=== PATIENT | female | born 1985 | race Caucasian/White ===

== ENCOUNTER → 2017-10-08 | Outpatient (CLI) | payer BC ==
--- NOTE | 2017-10-08 16:24 | FL ---
EXAMINATION TYPE: FL hysterosalpingography DATE OF EXAM: 10/08/2017 COMPARISON: None HISTORY: Chronic infertility TECHNIQUE: The procedure was explained to the patient. All questions were answered. Written and verba l informed consent was obtained. Patient was placed on the fluoroscopy table. The cervix was localized by placement of the speculum. The vaginal vault was cleansed with Betadine. Catheter was placed into the cervical os. The balloon was inflated. Under fluoroscopic observation co ntrast was injected. 4 mL of contrast was utilized. The balloon was deflated and the catheter withdrawn. Delayed image was obtained overhead radiograph. Discharge instructions were discussed with the patient. Patient tolerated procedure very well. FINDINGS: Preliminary go go dancer images is noncontributory Uterus has a normal morphology. The fallopian tubes are thin and delicate. There is little resistance to contrast injection. Free spill is observed at the bilateral ovaries. There is free spill and empt yazmin of the uterus on delayed images. IMPRESSION: 1. Normal hysterosalpingogram with free spill through the bilateral fallopian tubes.
== END | disposition home or self-care (01) ==
LOC: RADFLMAIN 13:13
PROVIDERS: ATTEND Obstetrics & Gynecology Reproductive Endocrinology
DX: N70.11 Chronic salpingitis (principal)
CPT/HCPCS: 58340; 74740; Q9965

== ENCOUNTER 2018-01-14 14:14 | Emergency (ER) | payer BC ==
[2018-01-14] MEDS ORDERED: SODIUM CHLORIDE 0.9% 1,000 ML IV STA (15:06)
[2018-01-14 15:44] LABS: Basophils % (A) 0 %; Eosinophils # (A) 0.1 k/uL (0-0.7); Eosinophils % (A) 1 %; HCT 43.9 % (34.0-46.0); HGB 15.3 gm/dL (11.4-16.0); Lymphocytes # (A) 2.1 k/uL (1.0-4.8); Lymphocytes % (A) 18 %; MCH 31.5 pg (25.0-35.0); MCV 90.2 fL (80.0-100.0); Mean Platelet Volume 7.7; Monocytes # (A) 0.4 k/uL (0-1.0); Monocytes % (A) 3 %; Neutrophils # (A) 9.4 k/uL (1.3-7.7); Neutrophils % (A) 77 %; Platelet Count 211 k/uL (150-450); RBC 4.86 m/uL (3.80-5.40); RDW 12.7 % (11.5-15.5); WBC 12.1 k/uL (3.8-10.6)
[2018-01-14 15:50] LABS: Prothrombin Time 9.6 sec (9.0-12.0)
--- NOTE | 2018-01-14 15:52 | ED ---
Neuro HPI - General Source: patient, RN notes reviewed Mode of arrival: ambulatory Limitations: no limitations - History of Present Illness Is the patient presenting with stroke symptoms?: No <Lokesh Lewis - Last Filed: 01/14/18 19:22> <Zenon Segura - Last Filed: 01/14/18 21:21> - General Chief Complaint: Neuro Symptoms/Deficit Stated Complaint: headache & confusion/12 wks preg Time Seen by Provider: 01/14/18 14:48 - History of Present Illness Initial Comments: This a 32-year-old female presents emergency Department chief complaint of an episode of confusion, difficulty with thought process. 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 Patient states that she thought she just needs some rest that she has not felt well during her . She states she went to lunch attempted to rest and ate some food with no improvement her symptoms. Patient states she then developed a headache is concerned that she was not feeling well. Patient called PCP who told her to the emergency department. Patient has no focal weakness. She denies chest pain, shortness breath, vomiting. She does have ongoing nausea related to her . Patient has been referred to high-risk secondary to her history of preeclampsia. Patient is A0 approximately 12 weeks with no vaginal bleeding or vaginal discharge. She has no dysuria no hematuria. Patient states she's had no prior cardiac disease no prior seizure diagnosis, TIA, CVA. (Lokesh Lewis) - Related Data Home Medications: Home Medications Medication Instructions Recorded Confirmed 78/Iron/Folate 1/Dha 1 tab PO DAILY 11/29/14 01/14/18 [Prenate Dha Softgel] Montelukast [Singulair] 10 mg PO DAILY 01/14/18 01/14/18 Allergies/Adverse Reactions: Allergies Allergy/AdvReac Type Severity Reaction Status Date / Time amoxicillin Allergy Rash/Hives Verified 01/14/18 14:51 Sulfa (Sulfonamide Allergy Rash/Hives Verified 01/14/18 14:51 Antibiotics) Review of Systems ROS Other: All systems not noted in ROS Statement are negative. <Lokesh Lewis - Last Filed: 01/14/18 19:22> ROS Other: All systems not noted in ROS Statement are negative. <Zenon Segura B - Last Filed: 01/14/18 21:21> ROS Statement: Those systems with pertinent positive or pertinent negative responses have been documented in the HPI. General Exam Limitations: no limitations General appearance: alert, in no apparent distress Head exam: Present: atraumatic, normocephalic, normal inspection Eye exam: Present: normal appearance, PERRL, EOMI. Absent: scleral icterus, conjunctival injection, periorbital swelling ENT exam: Present: normal exam, normal oropharynx, mucous membranes moist Neck exam: Present: normal inspection, full ROM. Absent: tenderness, meningismus, lymphadenopathy Respiratory exam: Present: normal lung sounds bilaterally. Absent: respiratory distress, wheezes, rales, rhonchi, stridor Cardiovascular Exam: Present: regular rate, normal rhythm, normal heart sounds. Absent: systolic murmur, diastolic murmur, rubs, gallop, clicks GI/Abdominal exam: Present: soft, normal bowel sounds. Absent: distended, tenderness, guarding, rebound, rigid Neurological exam: Present: alert, oriented X3, CN II-XII intact, reflexes normal, other (Finger to nose intact bilaterally, GCS 15 and NIH scale 0 normal Romberg). Absent: motor sensory deficit Skin exam: Present: warm, dry, intact, normal color. Absent: rash <Lokesh Lewis M - Last Filed: 01/14/18 19:22> General appearance: alert, in no apparent distress Head exam: Present: atraumatic, normocephalic, normal inspection Eye exam: Present: normal appearance, PERRL, EOMI. Absent: scleral icterus, conjunctival injection, periorbital swelling ENT exam: Present: normal exam, mucous membranes moist Neck exam: Present: normal inspection. Absent: tenderness, meningismus, lymphadenopathy Respiratory exam: Present: normal lung sounds bilaterally. Absent: respiratory distress, wheezes, rales, rhonchi, stridor Cardiovascular Exam: Present: regular rate, normal rhythm, normal heart sounds. Absent: systolic murmur, diastolic murmur, rubs, gallop, clicks GI/Abdominal exam: Present: soft, normal bowel sounds. Absent: distended, tenderness, guarding, rebound, rigid Extremities exam: Present: normal inspection, full ROM, normal capillary refill. Absent: tenderness, pedal edema, joint swelling, calf tenderness Back exam: Present: normal inspection Neurological exam: Present: alert, oriented X3, CN II-XII intact Psychiatric exam: Present: normal affect, normal mood Skin exam: Present: warm, dry, intact, normal color. Absent: rash <Zenon Segura - Last Filed: 01/14/18 21:21> Stroke MDM - Lab Data Result diagrams: 01/14/18 15:15 01/14/18 15:15 <Lokesh Lewis - Last Filed: 01/14/18 19:22> - Lab Data Result diagrams: 01/14/18 15:15 01/14/18 15:15 <Zenon Segura - Last Filed: 01/14/18 21:21> - Lab Data Lab Results 01/14/18 01/14/18 01/14/18 Range/Units 15:15 15:15 15:15 WBC 12.1 H (3.8-10.6) k/uL RBC 4.86 (3.80-5.40) m/uL Hgb 15.3 (11.4-16.0) gm/dL Hct 43.9 (34.0-46.0) % MCV 90.2 (80.0-100.0) fL MCH 31.5 (25.0-35.0) pg MCHC 35.0 (31.0-37.0) g/dL RDW 12.7 (11.5-15.5) % Plt Count 211 (150-450) k/uL Neutrophils % 77 % Lymphocytes % 18 % Monocytes % 3 % Eosinophils % 1 % Basophils % 0 % Neutrophils # 9.4 H (1.3-7.7) k/uL Lymphocytes # 2.1 (1.0-4.8) k/uL Monocytes # 0.4 (0-1.0) k/uL Eosinophils # 0.1 (0-0.7) k/uL Basophils # 0.0 (0-0.2) k/uL PT (9.0-12.0) sec INR (<1.2) APTT (22.0-30.0) sec Sodium 137 (137-145) mmol/L Potassium 3.9 (3.5-5.1) mmol/L Chloride 105 (98-107) mmol/L Carbon Dioxide 23 (22-30) mmol/L Anion Gap 9 mmol/L BUN 12 (7-17) mg/dL Creatinine 0.61 (0.52-1.04) mg/dL Est GFR (CKD-EPI)AfAm >90 (>60 ml/min/1.73 sqM) Est GFR (CKD-EPI)NonAf >90 (>60 ml/min/1.73 sqM) Glucose 114 H (74-99) mg/dL Calcium 9.8 (8.4-10.2) mg/dL Total Bilirubin 0.3 (0.2-1.3) mg/dL AST 22 (14-36) U/L ALT 15 (9-52) U/L Alkaline Phosphatase 76 (38-126) U/L Total Creatine Kinase 38 (30-135) U/L CK-MB (CK-2) <0.2 (0.0-2.4) ng/mL CK-MB (CK-2) Rel Index Troponin I <0.012 (0.000-0.034) ng/mL Total Protein 7.9 (6.3-8.2) g/dL Albumin 4.3 (3.5-5.0) g/dL Urine Color Urine Appearance (Clear) Urine pH (5.0-8.0) Ur Specific [place] (1.001-1.035) Urine Protein (Negative) Urine Glucose (UA) (Negative) Urine Ketones (Negative) Urine Blood (Negative) Urine Nitrite (Negative) Urine Bilirubin (Negative) Urine Urobilinogen (<2.0) mg/dL Ur Leukocyte Esterase (Negative) Urine RBC (0-5) /hpf Ur Squamous Epith Cells (0-4) /hpf Urine Bacteria (None) /hpf Hyaline Casts (0-2) /lpf Urine Mucus (None) /hpf Urine Yeast (Budding) (None) /hpf 01/14/18 01/14/18 Range/Units 15:15 16:20 WBC (3.8-10.6) k/uL RBC (3.80-5.40) m/uL Hgb (11.4-16.0) gm/dL Hct (34.0-46.0) % MCV (80.0-100.0) fL MCH (25.0-35.0) pg MCHC (31.0-37.0) g/dL RDW (11.5-15.5) % Plt Count (150-450) k/uL Neutrophils % % Lymphocytes % % Monocytes % % Eosinophils % % Basophils % % Neutrophils # (1.3-7.7) k/uL Lymphocytes # (1.0-4.8) k/uL Monocytes # (0-1.0) k/uL Eosinophils # (0-0.7) k/uL Basophils # (0-0.2) k/uL PT 9.6 (9.0-12.0) sec INR 1.0 (<1.2) APTT 23.0 (22.0-30.0) sec Sodium (137-145) mmol/L Potassium (3.5-5.1) mmol/L Chloride (98-107) mmol/L Carbon Dioxide (22-30) mmol/L Anion Gap mmol/L BUN (7-17) mg/dL Creatinine (0.52-1.04) mg/dL Est GFR (CKD-EPI)AfAm (>60 ml/min/1.73 sqM) Est GFR (CKD-EPI)NonAf (>60 ml/min/1.73 sqM) Glucose (74-99) mg/dL Calcium (8.4-10.2) mg/dL Total Bilirubin (0.2-1.3) mg/dL AST (14-36) U/L ALT (9-52) U/L Alkaline Phosphatase (38-126) U/L Total Creatine Kinase (30-135) U/L CK-MB (CK-2) (0.0-2.4) ng/mL CK-MB (CK-2) Rel Index Troponin I (0.000-0.034) ng/mL Total Protein (6.3-8.2) g/dL Albumin (3.5-5.0) g/dL Urine Color Yellow Urine Appearance Turbid H (Clear) Urine pH 6.5 (5.0-8.0) Ur Specific [place] 1.016 (1.001-1.035) Urine Protein Negative (Negative) Urine Glucose (UA) Negative (Negative) Urine Ketones Negative (Negative) Urine Blood Negative (Negative) Urine Nitrite Negative (Negative) Urine Bilirubin Negative (Negative) Urine Urobilinogen <2.0 (<2.0) mg/dL Ur Leukocyte Esterase Small H (Negative) Urine RBC 4 (0-5) /hpf Ur Squamous Epith Cells 2 (0-4) /hpf Urine Bacteria Rare H (None) /hpf Hyaline Casts 14 H (0-2) /lpf Urine Mucus Rare H (None) /hpf Urine Yeast (Budding) Many H (None) /hpf - Medical Decision Making 30 female the ER for evasive headache positive headache. Patient is CT brain and MR brain which are negative here in the emergency room. Patient has no complaints of altered mental status and no neurological findings currently. Patient will be discharged home to follow-up with her OB (Zenon Segura) 01/14/18 19:23 EKG performed at 15:27 normal sinus rhythm with a rate of 98 LA 168 QRS 78 QT/ QTC 388/474 (Lokesh Lewis) Past Medical History Past Medical History: Asthma, Seizure Disorder Additional Past Medical History / Comment(s): seizures as a toddler, none since 18months of age History of Any Multi-Drug Resistant Organisms: None Reported Past Surgical History: Appendectomy, Section Past Anesthesia/Blood Transfusion Reactions: No Reported Reaction Past Psychological History: No Psychological Hx Reported Smoking Status: Never smoker Past Alcohol Use History: None Reported Past Drug Use History: None Reported - Past Family History Mother Family Medical History: Diabetes Mellitus, Hypertension <Lokesh Lewis - Last Filed: 01/14/18 19:22> Course <Lokesh Lewis - Last Filed: 01/14/18 19:22> <Zenon Segura - Last Filed: 01/14/18 21:21> Vital Signs 01/14/18 01/14/18 01/14/18 14:35 16:23 20:48 Temperature 98.1 F 98.3 F Pulse Rate 101 H 92 95 Respiratory 18 16 18 Rate Blood Pressure 150/88 115/82 120/83 O2 Sat by Pulse 97 96 100 Oximetry - Reevaluation(s) Reevaluation #1: 01/14/18 21:21 Medical record is reviewed No neurological focal findings found Patient can be discharged home (Zenon Segura) Disposition <Lokesh Lewis - Last Filed: 01/14/18 19:22> Is patient prescribed a controlled substance at d/c from ED?: No <Zenon Segura - Last Filed: 01/14/18 21:21> Clinical Impression: Headache Disposition: HOME SELF-CARE Condition: Good Instructions: Acute Headache (ED) Referrals: Umm Arguelles MD [Primary Care Provider] - 1-2 days
[2018-01-14 15:56] LABS: ALT 15 U/L (9-52); AST 22 U/L (14-36); Albumin 4.3 g/dL (3.5-5.0); Alkaline Phosphatase 76 U/L (38-126); Anion Gap 9 mmol/L; Blood Urea Nitrogen 12 mg/dL (7-17); Calcium 9.8 mg/dL (8.4-10.2); Carbon Dioxide 23 mmol/L (22-30); Chloride 105 mmol/L (98-107); Creatine Kinase 38 U/L (30-135); Glucose 114 mg/dL (74-99); Potassium 3.9 mmol/L (3.5-5.1); Sodium 137 mmol/L (137-145); Total Bilirubin 0.3 mg/dL (0.2-1.3); Total Protein 7.9 g/dL (6.3-8.2)
[2018-01-14 16:08] LABS: Troponin I <0.012 ng/mL (0.000-0.034)
[2018-01-14 16:16] LABS: Creatine Kinase MB <0.2 ng/mL (0.0-2.4)
[2018-01-14 16:34] LABS: Appearance,Urine Turbid (Clear); Bacteria,Urine Rare /hpf; Bilirubin,Urine Negative (Negative); Blood,Urine Negative (Negative); Budding Yeast,Urine Many /hpf; Color,Urine Yellow; Glucose,Urine (UA) Negative (Negative); Hyaline Casts,Urine 14 /lpf (0-2); Ketones,Urine Negative (Negative); Leukocyte Esterase,Urine Small (Negative); Mucus,Urine Rare /hpf; Nitrite,Urine Negative (Negative); PH, Urine 6.5 (5.0-8.0); Protein,Urine Negative (Negative); RBC,Urine 4 /hpf (0-5); Specific Gravity,Urine 1.016 (1.001-1.035); Squamous Epithelial Cell,Urine 2 /hpf (0-4); Urobilinogen,Urine <2.0 mg/dL (<2.0)
--- NOTE | 2018-01-14 16:58 | CT ---
EXAMINATION TYPE: CT brain wo con DATE OF EXAM: 01/14/2018 COMPARISON: None HISTORY: Headache and confusion. CT DLP: 1012.4 mGycm. Automated Exposure Control for Dose Reduction was Utilized. TECHNIQUE: CT scan of the head is performed without contrast. FINDINGS: Ventricles and sulci appear normal. There is no mass effect nor midline shift. There is no sign of intracranial hemorrhage. The calvarium is intact. IMPRESSION: Negative CT scan of the brain.
[2018-01-14 20:50] VITALS: BP 120/83; PULSE 95; RESP 18; TEMP 98.3
--- NOTE | 2018-01-14 21:04 | MR ---
EXAMINATION TYPE: MR brain wo con DATE OF EXAM: 01/14/2018 COMPARISON: None HISTORY: Headache, memory issues, confusion, 15 wks . Standard multiplanar, multisequence MRI departmental protocol Multiplanar, multisequence images of the brain were acquired. Diffusion weighted imaging was performe d. FINDINGS: Ventricles of normal size. There is no mass effect nor midline shift. There is no sign of i ntracranial hemorrhage. Corpus callosum appears normal. Sella turcica appears normal. Brainstem is in tact. There is no evidence of cortical infarct. IMPRESSION: Negative MR scan of the brain.
== END 2018-01-14 21:58 | disposition home or self-care (01) ==
LOC: EC 14:14
DX: O99.89 Other specified diseases and conditions complicating pregnancy, childbirth and the puerperium (principal); R51 Headache; R41.0 Disorientation, unspecified; R11.0 Nausea; O99.511 Diseases of the respiratory system complicating pregnancy, first trimester; J45.909 Unspecified asthma, uncomplicated; Z3A.12 12 weeks gestation of pregnancy; Z90.49 Acquired absence of other specified parts of digestive tract; Z79.899 Other long term (current) drug therapy; Z88.0 Allergy status to penicillin; Z88.2 Allergy status to sulfonamides
CPT/HCPCS: 36415; 70450; 70551; 80053; 81001; 82550; 82553; 84484; 85025; 85610; 85730; 93005; 96360; 96361; 99285

== ENCOUNTER → 2018-05-01 | Outpatient (CLI) | payer BC ==
[2018-05-01 11:03] LABS: HCT 39.9 % (34.0-46.0); HGB 13.7 gm/dL (11.4-16.0); MCHC 34.3 g/dL (31.0-37.0); MCV 93.3 fL (80.0-100.0); Mean Platelet Volume 7.9; Platelet Count 173 k/uL (150-450); RBC 4.27 m/uL (3.80-5.40); RDW 13.7 % (11.5-15.5); WBC 12.8 k/uL (3.8-10.6)
== END | disposition home or self-care (01) ==
LOC: LABWHC1 09:44
PROVIDERS: ATTEND Obstetrics & Gynecology
DX: Z34.82 Encounter for supervision of other normal pregnancy, second trimester (principal)
CPT/HCPCS: 36415; 82950; 85027

== ENCOUNTER → 2018-06-28 | Outpatient (CLI) | payer BC | END | disposition home or self-care (01) | LOC: LABWHC1 15:36 | PROVIDERS: ATTEND Otolaryngology | DX: J30.89 Other allergic rhinitis (principal) | CPT/HCPCS: 36415 ==

== ENCOUNTER 2018-07-18 13:48 | Outpatient (CLI) | payer BC ==
[2018-07-18 14:22] VITALS: BP 126/78; PULSE 99; RESP 16; TEMP 97.7
[2018-07-18 14:35] LABS: Appearance,Urine Clear (Clear); Bilirubin,Urine Negative (Negative); Blood,Urine Negative (Negative); Color,Urine Yellow; Glucose,Urine (UA) Negative (Negative); Ketones,Urine Negative (Negative); Leukocyte Esterase,Urine Negative (Negative); Nitrite,Urine Negative (Negative); Protein,Urine Negative (Negative); Specific Gravity,Urine 1.022 (1.001-1.035); Urobilinogen,Urine <2.0 mg/dL (<2.0)
[2018-07-18 14:54] LABS: ALT 28 U/L (9-52); AST 29 U/L (14-36); Basophils % (A) 0 %; Blood Urea Nitrogen 13 mg/dL (7-17); Eosinophils # (A) 0.1 k/uL (0-0.7); Eosinophils % (A) 1 %; HCT 43.3 % (34.0-46.0); HGB 15.1 gm/dL (11.4-16.0); LDH 404 U/L (313-618); Lymphocytes # (A) 2.2 k/uL (1.0-4.8); Lymphocytes % (A) 22 %; MCH 32.3 pg (25.0-35.0); MCHC 34.8 g/dL (31.0-37.0); MCV 92.6 fL (80.0-100.0); Mean Platelet Volume 10.6; Monocytes # (A) 0.4 k/uL (0-1.0); Monocytes % (A) 4 %; Neutrophils # (A) 6.9 k/uL (1.3-7.7); Neutrophils % (A) 72 %; Platelet Count 137 k/uL (150-450); RBC 4.67 m/uL (3.80-5.40); RDW 14.9 % (11.5-15.5); Uric Acid 6.7 mg/dL (3.7-7.4); WBC 9.7 k/uL (3.8-10.6)
[2018-07-18 15:14] LABS: Anisocytosis (M) Present; Polychromasia Present
--- NOTE | 2018-08-04 08:36 | P.MSEPDOC ---
Presenting Problems - Arrival Data Date of Arrival on Unit: 07/18/18 Time of Arrival on Unit: 13:48 Mode of Transport: Ambulatory - Complaint OB-Reason for Admission/Chief Complaint: PIH Comment: pt states history of PIH with first has some high pressures taken at home. Medical History - Information : 2 Para: 1 Term: 0 : 0 Abortions: Spontaneous or Elective: 0 Number of Living Children: 1 - Gestational Age Gestational Age by RJ (wks/days): 38 Weeks and 0 Days - History Complications: Preeclampsia, GDM, Prior Review of Systems - Review of Systems Constitutional: No problems Breast: No problems ENT: No problems Cardiovascular: No problems Respiratory: No problems Gastrointestinal: No problems Genitourinary: No problems Musculoskeletal: No problems Neurological: No problems Skin: No problems Vital Signs - Temperature Temperature: 97.7 F Temperature Source: Oral - Pulse Right Brachial Pulse Rate: 99 Pulse Assessment Method: Automatic Cuff - Respirations Respiratory Rate: 16 Oxygen Delivery Method: Room Air O2 Sat by Pulse Oximetry: 96 - Blood Pressure Right Arm Blood Pressure: 126/78 Blood Pressure Mean: 94 Blood Pressure Source: Automatic Cuff Medical Screen Scoring (Pre) - Uterine Contractions Frequency: N/A Duration: N/A Intensity: N/A - Maternal Vital Signs Maternal Temperature: N/A Signs of Preeclampsia: Headache = 1 Maternal Respirations: N/A - Pain Assessment Pain Scale Used: Numeric (1 - 10) Pain Intensity: 0 Pain Management Goal: 0 Pain Behavior: None Exhibited - Assessment Baseline FHR: 140 Heart Rate - NICHD Category: Category I (Normal) = 0 NST: Reactive Position: N/A - Total Score Total Score (Pre): 1 - Level of Risk Level of Risk: Low (0-5) Physician Notification (Pre) - Physician Notified Physician Notified Date: 07/18/18 Physician Notified Time: 14:04 Physician/Practitioner Notifed:: Reji Spoke With: Reji New Order Received: Yes - Notification Comment Comment: Quentin Perez RN obtained orders by phone for PIH workup Medical Screen Scoring (Post) - Uterine Contractions Frequency: N/A Duration: N/A Intensity: N/A - Maternal Vital Signs Maternal Temperature: N/A Maternal Blood Pressure: N/A Signs of Preeclampsia: Headache = 1 Maternal Respirations: N/A - Pain Assessment Pain Scale Used: Numeric (1 - 10) Pain Intensity: 0 Pain Management Goal: 0 Pain Behavior: None Exhibited - Maternal Trauma Maternal Trauma: N/A - Assessment Heart Rate: 140 Heart Rate - NICHD Category: Category I (Normal) = 0 Position: N/A Station: N/A - Total Score Total Score (Post): 1 - Post Treatment Level of Risk Post Treatment Level of Risk: Low (0-5) Physician Notification (Post) - Physician Notified Physician Notified Date: 07/18/18 Physician Notified Time: 15:30 Physician/Practitioner Notified:: Reji Spoke With: Reji New Order Received: No - Notification Comment Comment: Dr Mendoza informed of lab results and serial blood pressures reactive NST no contractions no PIH symptoms Disposition - Disposition OB Disposition: Discharge to home Discharge Date: 07/18/18 Discharge Time: 15:40 I agree with the RN Medical Screening Exam: Yes Risk & Benefit of care provided described in d/c instruction: Yes Diagnosis: GESTATIONAL HTN W/O SIGNIFICANT PROTEINURIA, THIRD TRIMESTER
== END 2018-07-18 15:40 | disposition home or self-care (01) ==
LOC: FBPOP 13:48
PROVIDERS: ATTEND Obstetrics & Gynecology
DX: O13.3 Gestational [pregnancy-induced] hypertension without significant proteinuria, third trimester (principal); Z68.38 Body mass index [BMI] 38.0-38.9, adult
CPT/HCPCS: 59025; 81003; 82565; 82570; 83615; 84156; 84450; 84460; 84520; 84550; 85025; 99215

== ENCOUNTER 2018-07-27 09:56 | Inpatient (IN) | payer BC ==
--- NOTE | 2018-07-26 20:10 | P.HPOB ---
History of Present Illness H&P Date: 07/26/18 Chief Complaint: Repeat section This is a 32-year-old female 2 para 1 with an estimated date of confinement of 08/01/2018, estimated gestational age of 39-2/7 weeks, who presents to labor and delivery for scheduled repeat section secondary to gestational diabetes and history of previous section. She does have a history of preeclampsia but her labs have been within normal limits during this . Her sugars have been controlled on metformin and diet control. labs: GC/chlamydia/Trichomonas-negative Hemoglobin-14.2 Blood type-O+ Antibody screen-negative Rubella-immune HIV-nonreactive Random glucose-68 RPR-nonreactive Hepatitis B surface antigen-negative One hour [id number], 24 weeks'-173 Three-hour Glucola-within normal limits Group B streptococcus-negative Obstetrical history: . History of 1 section at 36-1/2 weeks due to failed induction of labor for preeclampsia-severe. She also had gestational diabetes during this . Gynecologic history: No history of sexual transmitted diseases. Social history: She is . 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 Review of Systems Constitutional: Denies chills, Denies fever Eyes: denies blurred vision, denies pain Ears, nose, mouth and throat: Denies headache, Denies sore throat Cardiovascular: Denies chest pain, Denies shortness of breath Respiratory: Denies cough Gastrointestinal: Reports abdominal pain (Irregular contractions) Genitourinary: Reports Musculoskeletal: Reports low back pain Integumentary: Denies pruritus, Denies rash Neurological: Denies numbness, Denies weakness Past Medical History Past Medical History: Asthma, Seizure Disorder Additional Past Medical History / Comment(s): seizures as a toddler, none since 18 months of age, gestational diabetes, benign PVC's, allergy induced asthma, History of Any Multi-Drug Resistant Organisms: None Reported Past Surgical History: Appendectomy, Section Additional Past Surgical History / Comment(s): oral surgery Past Anesthesia/Blood Transfusion Reactions: Previous Problems w/ Anesthesia, Motion Sickness Additional Past Anesthesia/Blood Transfusion Reaction / Comment(s): "could not move arms after last C/S"- (had epidural then spinal) - wore off when numbing wore off Past Psychological History: No Psychological Hx Reported Smoking Status: Never smoker Past Alcohol Use History: None Reported Past Drug Use History: None Reported - Past Family History Mother Family Medical History: Deep Vein Thrombosis (DVT) Medications and Allergies Home Medications Medication Instructions Recorded Confirmed Type 78/Iron/Folate 1/Dha 1 tab PO DAILY 11/29/14 07/23/18 History [Prenate Dha Softgel] Aspirin [Adult Low Dose Aspirin EC] 81 mg PO DAILY 07/18/18 07/23/18 History Loratadine [Claritin] 10 mg PO DAILY 07/18/18 07/23/18 History metFORMIN HCL 1,000 mg PO DAILY 07/18/18 07/23/18 History Allergies Allergy/AdvReac Type Severity Reaction Status Date / Time amoxicillin Allergy Rash/Hives Verified 07/23/18 14:42 Sulfa (Sulfonamide Allergy Rash/Hives Verified 07/23/18 14:42 Antibiotics) Exam Osteopathic Statement: *. No significant issues noted on an osteopathic structural exam other than those noted in the History and Physical/Consult. HEENT: Within normal limits Heart: Regular rate and rhythm Lungs: Clear to auscultation bilaterally Abdomen: Cervix: 1 cm/50%/-3 station heart tones: 140s by Doppler Extremities: Negative Homans Assessment and Plan (1) 39 weeks gestation of Status: Acute Code(s): Z3A.39 - 39 WEEKS GESTATION OF SNOMED Code(s): 75710137 (2) Gestational diabetes mellitus (GDM) Status: Acute Code(s): O24.419 - GESTATIONAL DIABETES MELLITUS IN , UNSP CONTROL SNOMED Code(s): 93794605 (3) Previous delivery affecting Status: Acute Code(s): O34.219 - MATERNAL CARE FOR UNSP TYPE SCAR FROM PREVIOUS DEL SNOMED Code(s): 624649042 Plan: Proceed with repeat low transverse section. I have discussed the risks, benefits, and alternative therapies for the above- mentioned procedure and for both sedation/anesthesia as well as necessary blood products administration, if indicated, as they pertain to this patient. The patient has indicated her understanding and acceptance of the risks and procedures discussed.
[2018-07-27] MEDS ORDERED: CITRIC ACID-SODIUM CITRATE 15 ML CUP PO ONE (10:21)
[2018-07-27] MEDS ORDERED: CLINDAMYCIN 900 MG in DEXTROSE 5% IN WATER 50 ML IVPB STA ×2 (10:21)
[2018-07-27] MEDS ORDERED: LACTATED RINGERS 1,000 ML IV ONE (10:21)
[2018-07-27] MEDS ORDERED: LIDOCAINE 1% 20 ML VIAL (10MG/ML) FOR IV START INTRADERMA PRN (10:21)
[2018-07-27 10:32] VITALS: BMI 35.1
[2018-07-27 10:40] LABS: Basophils % (A) 0 %; Eosinophils # (A) 0.1 k/uL (0-0.7); Eosinophils % (A) 1 %; HCT 46.1 % (34.0-46.0); HGB 15.3 gm/dL (11.4-16.0); Lymphocytes # (A) 2.1 k/uL (1.0-4.8); Lymphocytes % (A) 28 %; MCH 30.7 pg (25.0-35.0); MCHC 33.1 g/dL (31.0-37.0); MCV 92.9 fL (80.0-100.0); Mean Platelet Volume 10.7; Monocytes # (A) 0.3 k/uL (0-1.0); Monocytes % (A) 4 %; Neutrophils # (A) 4.9 k/uL (1.3-7.7); Neutrophils % (A) 65 %; Platelet Count 130 k/uL (150-450); RBC 4.96 m/uL (3.80-5.40); WBC 7.5 k/uL (3.8-10.6)
[2018-07-27 10:42] LABS: Glucose,Whole Blood 77 mg/dL (75-99)
[2018-07-27] MEDS ORDERED: MORPHINE SULFATE (PF) 0.3 MG/0.3 ML SYR ONE (11:57)
[2018-07-27] MEDS ORDERED: ONDANSETRON 4 MG/2 ML VIAL ONE (11:57)
[2018-07-27] MEDS ORDERED: OXYTOCIN 10 UNIT/ML 1 ML VIAL ONE (11:57)
[2018-07-27] MEDS ORDERED: LACTATED RINGERS 1,000 ML BAG IV ONE (11:57)
[2018-07-27] MEDS ORDERED: PHENYLEPHRINE-0.9% NACL SYG 1 MG/10 ML SYRINGE ONE (11:57)
[2018-07-27] MEDS ORDERED: KETOROLAC 30 MG/ML 1 ML VIAL ONE (11:57)
[2018-07-27] MEDS ORDERED: NALBUPHINE 10 MG/ML (1 ML AMP) ONE (11:57)
--- NOTE | 2018-07-27 12:44 | P.OP ---
Date of Procedure: 07/27/18 Preoperative Diagnosis: 1. Intrauterine at 39-2/7 weeks. 2. Gestational diabetes. 3. History of previous section. Postoperative Diagnosis: Same plus lower abdominal nevus Procedure(s) Performed: Repeat low transverse section Excision of left lower abdominal wall nevus Anesthesia: spinal (Duramorph) Surgeon: Jessica Mendoza Commercial Real Estate Appraiser #1: Patricia Hanson Estimated Blood Loss (ml): 800 Pathology: other (Placenta, left lower abdominal wall nevus) Condition: stable Disposition: floor Indications for Procedure: This is a 32-year-old female 2 para 1 at 39-2/7 weeks, who presents for scheduled repeat section secondary to gestational diabetes and history of previous section. Her diabetes has been controlled with metformin and diet. She is also been followed by maternal medicine during this . Operative Findings: A viable female is noted in the vertex presentation with scores of 9 at 1 minute and 9 at 5 minutes and weight of 7 lbs. 1 oz. Normal uterus tubes and ovaries are noted. There is also noted to be a dark nevus on the left lower abdomen approximately 1 cm in diameter. The patient does consent to removal during surgery. Description of Procedure: The patient is taken to the operating room where she is placed in the dorsal supine position with leftward tilt after spinal Duramorph anesthesia is given. She is prepped and draped in the normal sterile fashion. Skin was tested and found to be adequately anesthetized. A Pfannenstiel skin incision was made with a scalpel through the previous laparotomy scar. A second knife was used to carry the incision down to the underlying layer of fascia. The fascia was nicked in the midline with a scalpel and then extended laterally bilaterally with Velazquez scissors. The anterior lip of the fascia was grasped with 2 Juan clamps and then dissected off the underlying rectus muscle in the midline with Velazquez scissors. The inferior aspect of the fascial incision was grasped with 2 Juan clamps and dissected off the underlying rectus muscle and the midline with Velazquez scissors. Next the peritoneum layer was tented up with 2 hemostats and then entered sharply with the scalpel. The incision is extended superiorly and inferiorly with Metzenbaum scissors. Next a DeLee retractor is placed. The vesicouterine peritoneum is entered sharply with Metzenbaum scissors and extended laterally bilaterally with Metzenbaum scissors and then the bladder flap is pushed inferiorly. The lower uterine segment is incised in transverse fashion with the scalpel and then bluntly entered with a hemostat. Clear fluid is noted. The incision was then extended laterally bilaterally with 2 fingers. Next the infant's head is delivered through the incision. Nose and mouth are bulb suctioned. The remainder of the infant is easily delivered and placed on mother's abdomen. Cord is clamped and cut. Infant is taken to warmer by nursing staff. Uterine fundus is gently massaged and placenta is delivered manually. Uterus is exteriorized and cleared of all clots and debris. Uterine incision is closed with 0 Vicryl suture in a running locked fashion. A second layer of 0 Vicryl suture is used in a running fashion for hemostasis. Once adequate hemostasis as assured, the vesicouterine peritoneum is reapproximated with 2-0 Vicryl suture in a running fashion. Posterior cul-de-sac is suctioned of all clots and debris. Uterus is returned to the abdomen. Incision is noted to be hemostatic. Peritoneal layer is closed with 0 Vicryl suture in a running fashion. Muscle layer is reapproximated with 0 Vicryl suture in interrupted fashion. Fascia layer is then closed with 0 PDS suture with 2 sutures meeting in the midline and the knots buried in either side and in the midline. The subcutaneous tissue was then closed with 2-0 Vicryl suture. Skin layer was then closed with hasmukh. Attention is then turned to the lower abdominal nevus on the left side. An elliptical incision is made with the scalpel removing the nevus entirely. The skin incision is then sutured with 4-0 Vicryl undyed suture in a subcuticular fashion. A Steri-Strip is placed over this incision. All sponge and needle counts are correct. The patient is taken to recovery room in stable condition.
[2018-07-27] MEDS ORDERED: ZOLPIDEM 5 MG TAB PO PRN (12:53)
[2018-07-27] MEDS ORDERED: diphenhydrAMINE 25 MG CAP PO PRN (12:53)
[2018-07-27] MEDS ORDERED: HYDROcodone/APAP 7.5-325MG 1 EACH TAB PO PRN (12:53)
[2018-07-27] MEDS ORDERED: SIMETHICONE 80 MG CHEWABLE PO PRN (12:53)
[2018-07-27] MEDS ORDERED: METOCLOPRAMIDE 5 MG/ML 2 ML VIAL IVP PRN (12:53)
[2018-07-27] MEDS ORDERED: diphenhydrAMINE 50 MG/ML 1 ML VIAL IVP PRN ×2 (12:53)
[2018-07-27] MEDS ORDERED: KETOROLAC 30 MG/ML 1 ML VIAL IVP PRN (12:53)
[2018-07-27] MEDS ORDERED: HYDROcodone/APAP 5-325MG 1 EACH TAB PO PRN (12:53)
[2018-07-27] MEDS ORDERED: NALOXONE 0.4 MG/ML 1 ML VIAL IV PRN (12:53)
[2018-07-27] MEDS ORDERED: diphenhydrAMINE 50 MG CAP PO PRN (12:53)
[2018-07-27] MEDS ORDERED: ONDANSETRON 4 MG/2 ML VIAL IVP PRN (12:53)
[2018-07-27] MEDS ORDERED: OXYTOCIN 20 UNITS/1000 ML NS 1,000 ML IV SCH (12:53)
[2018-07-27] MEDS: LACTATED RINGERS 1,000 ML IV SCH (14:35)
[2018-07-27 17:38] LABS: Hemoglobin A1C 5.1 % (4.0-6.0)
[2018-07-27] MEDS: SENNOSIDES-DOCUSATE SODIUM 1 EACH TAB PO SCH (21:15)
[2018-07-27] MEDS: LORATADINE 10 MG TAB PO SCH (23:12)
[2018-07-28 05:46] LABS: Basophils % (A) 0 %; Eosinophils # (A) 0.1 k/uL (0-0.7); Eosinophils % (A) 1 %; HCT 41.1 % (34.0-46.0); Lymphocytes # (A) 1.7 k/uL (1.0-4.8); Lymphocytes % (A) 17 %; MCH 31.6 pg (25.0-35.0); MCV 93.2 fL (80.0-100.0); Mean Platelet Volume 10.5; Monocytes # (A) 0.4 k/uL (0-1.0); Monocytes % (A) 4 %; Neutrophils # (A) 7.4 k/uL (1.3-7.7); Neutrophils % (A) 77 %; Platelet Count 100 k/uL (150-450); RBC 4.41 m/uL (3.80-5.40); RDW 14.9 % (11.5-15.5); WBC 9.6 k/uL (3.8-10.6)
--- NOTE | 2018-07-28 05:50 | P.PN ---
Progress Note - Text Progress Note Date: 07/28/18 POD 1 from . Had a spinal with Duramorph. Doing well this morning, able to ambulate and urinate on her own. No lower ext weakness. No parasthesia. No pruritis. Pain under control. No mental status changes.
[2018-07-28] MEDS: SENNOSIDES-DOCUSATE SODIUM 1 EACH TAB PO SCH ×2 (08:02→21:26)
--- NOTE | 2018-07-28 08:53 | P.PNOBGPC ---
Subjective - Subjective Principal diagnosis: Status post repeat section postoperative day #1 Interval history: Patient is doing well. She is ambulating. She is passing some flatus but no bowel movement yet. She is urinating without difficulty. Baby is breast- feeding well. Lochia is decreasing. Patient reports: Reports appetite normal, Reports voiding normally, Reports pain well controlled, Reports ambulating normally : doing well, nursing well Objective - Vital Signs Latest vital signs: Vital Signs Temp Pulse Resp BP Pulse Ox 07/28/18 04:00 97.8 F 77 16 119/70 07/28/18 00:00 97.7 F 84 16 117/77 96 07/27/18 16:00 97.6 F 85 16 139/78 98 07/27/18 14:59 96.7 F L 69 16 123/74 97 07/27/18 14:29 78 16 120/72 96 07/27/18 13:59 86 16 127/60 96 07/27/18 13:44 91 18 115/79 97 07/27/18 13:29 98 16 119/74 95 07/27/18 13:14 85 16 109/65 95 07/27/18 12:53 96.3 F L 93 16 106/62 95 07/27/18 10:23 97.4 F L 79 16 118/89 Intake and Output 07/27/18 07/28/18 07/28/18 22:59 06:59 14:59 Output Total 1100 800 Balance -1100 -800 Output: Urine 700 800 Uretheral (Adams) 700 Emesis 400 Other: # Voids 0 - Exam Extremities: Present: normal. Absent: tenderness, edema Abdomen: Present: normal appearance, soft (Positive bowel sounds 4). Absent: distention, tenderness Incision: Present: normal, dry, intact. Absent: erythematous Uterus: Present: normal, firm. Absent: tenderness - Labs Labs: Abnormal Lab Results - Last 24 Hours (Table) 07/27/18 07/28/18 Range/Units 10:20 05:31 Hct 46.1 H (34.0-46.0) % Plt Count 130 L 100 L (150-450) k/uL Assessment and Plan Assessment: Impression is status post repeat section postoperative day #1 (1) 39 weeks gestation of Current Visit: No Status: Acute Code(s): Z3A.39 - 39 WEEKS GESTATION OF SNOMED Code(s): 95941760 (2) Gestational diabetes mellitus (GDM) Current Visit: No Status: Acute Code(s): O24.419 - GESTATIONAL DIABETES MELLITUS IN , UNSP CONTROL SNOMED Code(s): 61634023 (3) Previous delivery affecting Current Visit: No Status: Acute Code(s): O34.219 - MATERNAL CARE FOR UNSP TYPE SCAR FROM PREVIOUS DEL SNOMED Code(s): 375563507 Plan: Continue with postoperative care. Advance diet as tolerated. Encouraged ambulation.
[2018-07-28] MEDS: LORATADINE 10 MG TAB PO SCH (10:57)
[2018-07-28] MEDS: IBUPROFEN 600 MG TAB PO PRN (16:24)
[2018-07-28] MEDS: LACTATED RINGERS 1,000 ML IV SCH (18:28)
[2018-07-28] MEDS: ACETAMINOPHEN TAB 325 MG TAB PO PRN (21:23)
[2018-07-29] MEDS: IBUPROFEN 600 MG TAB PO PRN (05:58)
--- NOTE | 2018-07-29 08:02 | P.DS ---
Providers Date of admission: 07/27/18 09:56 Expected date of discharge: 07/29/18 Attending physician: Jessica Mendoza Primary care physician: Stated None - Discharge Diagnosis(es) (1) 39 weeks gestation of Current Visit: No Status: Acute (2) Gestational diabetes mellitus (GDM) Current Visit: No Status: Acute (3) Previous delivery affecting Current Visit: No Status: Acute Hospital Course: This is a 32-year-old female 2 para 1 at 39-2/7 weeks who presents to labor and delivery for repeat section and a history of gestational diabetes controlled on metformin. She underwent a repeat low transverse section on 07/27/2018 and delivered a viable female with scores of 9 at 1 minute and 9 at 5 minutes and infant weight of 7 lbs. 1 oz. Her postoperative course and course has been essentially uncomplicated. She is breast-feeding. Lochia is decreasing. Pain is fairly well controlled with ibuprofen and regular Tylenol. She has been passing flatus but no bowel movement yet. She would like to go home today. Vital signs are stable. Abdomen is soft with positive bowel sounds 4. Incision is clean dry and intact. Extremities show negative Homans. Impression is status post repeat section postoperative day #2. Plan is to discharge home today. Routine postoperative and instructions are given. She will be given a prescription for ibuprofen. She has also requested a abdominal binder. She is advised to follow up in the office in 1 week for a postoperative check and in 6 weeks for check. She is advised to call the office if she has any further questions or concerns prior to her appointment time. Price will be removed and Steri-Strips placed prior to discharge. Procedures: Repeat low transverse section with delivery of a viable female on 07/27/2018 Patient Condition at Discharge: Stable Plan - Discharge Summary Discharge Rx Participant: Yes New Discharge Prescriptions: New Ibuprofen [Motrin] 600 mg PO Q6HR PRN #60 tab PRN Reason: Mild Pain Or Fever >= 100.5 Continue 78/Iron/Folate 1/Dha [Prenate Dha Softgel] 1 tab PO DAILY Loratadine [Claritin] 10 mg PO DAILY Discontinued metFORMIN HCL 1,000 mg PO DAILY Aspirin [Adult Low Dose Aspirin EC] 81 mg PO DAILY Discharge Medication List 78/Iron/Folate 1/Dha [Prenate Dha Softgel] 1 tab PO DAILY 09/23/15 [History] Loratadine [Claritin] 10 mg PO DAILY 07/18/18 [History] Ibuprofen [Motrin] 600 mg PO Q6HR PRN #60 tab 07/29/18 [Rx] Follow up Appointment(s)/Referral(s): Jessica Mendoza DO [Doctor of Osteopathic Medicine] - 1 Week Activity/Diet/Wound Care/Special Instructions: Instructions 1. Do not begin any exercise program for 3 weeks. 2. Do not resume sexual relations for 3 weeks or longer if uncomfortable. 3. You may take tub baths or showers at any time. 4. You may use tampons if desired after 3 weeks. 5. Keep the area of episiotomy (stitches) clean and dry. 6. If you are not nursing, wear a good fitting, supportive bra during the day and limit fluid intake for at least 1 week to prevent breast engorgement. 7. Call the office, [phone], within the next week to make appointment for your 6 week checkup if it has not already been made. 8. Report any of the following occurrences to the doctor promptly: a. Heavy, excessive bleeding b. Chills, fever c. Burning or frequency of urination d. Pain or redness and breasts if nursing e. Increasing pain or swelling in episiotomy (stitches). In addition to the above instructions, the following additional should be followed: 1. No heavy lifting or straining (exercising) until after 6 week checkup. 2. Keep abdominal incision clean and dry: You may wear a dressing if more comfortable. 3. Make office appointment for 10 days after going home or as instructed by her doctor. Discharge Disposition: HOME SELF-CARE
[2018-07-29] MEDS: SENNOSIDES-DOCUSATE SODIUM 1 EACH TAB PO SCH (08:18)
[2018-07-29 08:20] VITALS: BP 120/82; PULSE 93; RESP 20; TEMP 98
[2018-07-29] MEDS: ACETAMINOPHEN TAB 325 MG TAB PO PRN (10:23)
[2018-07-29 12:11] LABS: Basophils % (A) 0 %; Eosinophils # (A) 0.1 k/uL (0-0.7); Eosinophils % (A) 1 %; HCT 46.3 % (34.0-46.0); HGB 15.2 gm/dL (11.4-16.0); Lymphocytes # (A) 1.5 k/uL (1.0-4.8); Lymphocytes % (A) 18 %; MCH 31.5 pg (25.0-35.0); MCHC 32.8 g/dL (31.0-37.0); MCV 95.9 fL (80.0-100.0); Mean Platelet Volume 11.7; Monocytes # (A) 0.4 k/uL (0-1.0); Monocytes % (A) 5 %; Neutrophils # (A) 6.4 k/uL (1.3-7.7); Neutrophils % (A) 75 %; Platelet Count 118 k/uL (150-450); RBC 4.82 m/uL (3.80-5.40); RDW 15.1 % (11.5-15.5); WBC 8.5 k/uL (3.8-10.6)
== END 2018-07-29 12:00 | disposition home or self-care (01) | DRG 788 ==
LOC: 4FBP 09:56
PROVIDERS: ADMIT Obstetrics & Gynecology; ATTEND Obstetrics & Gynecology
PROC: 0HB7XZZ Excision of Abdomen Skin, External Approach (ICD-10-PCS; 2018-07-27)
PROC: 10D00Z1 Extraction of Products of Conception, Low, Open Approach (ICD-10-PCS; principal; 2018-07-27 12:00)
DX: O34.211 Maternal care for low transverse scar from previous cesarean delivery (principal); N85.8 Other specified noninflammatory disorders of uterus; Z3A.39 39 weeks gestation of pregnancy; Z37.0 Single live birth; O24.425 Gestational diabetes mellitus in childbirth, controlled by oral hypoglycemic drugs; J45.909 Unspecified asthma, uncomplicated; O99.52 Diseases of the respiratory system complicating childbirth; Z86.69 Personal history of other diseases of the nervous system and sense organs; Z79.84 Long term (current) use of oral hypoglycemic drugs; Z79.82 Long term (current) use of aspirin; Z79.899 Other long term (current) drug therapy; Z88.0 Allergy status to penicillin; Z88.2 Allergy status to sulfonamides; Z83.2 Family history of diseases of the blood and blood-forming organs and certain disorders involving the immune mechanism
CPT/HCPCS: 83036; 85025; 86850; 86900; 86901; 88305; 88307

== ENCOUNTER → 2023-10-23 | Outpatient (CLI) | payer BC | END | disposition home or self-care (01) | LOC: LABPRL 10:17 | PROVIDERS: ATTEND Family Medicine | DX: N91.0 Primary amenorrhea (principal) | CPT/HCPCS: 84702 ==

== ENCOUNTER 2023-10-26 15:29 | Emergency (ER) | payer BC | END 2023-10-26 19:28 | disposition home or self-care (01) | LOC: EC 15:29 | CPT/HCPCS: 86850; 86900; 86901; 99282 ==

== ENCOUNTER → 2023-10-26 | Outpatient (CLI) | payer BC ==
--- NOTE | 2023-11-25 10:31 | US ---
EXAMINATION TYPE: Ultrasound OB <= 14 week fetus, transvaginal DATE OF EXAM: 10/26/2023 3:07 PM COMPARISON: NONE CLINICAL INDICATION: 37-year-old female History: Bleeding x 2 weeks. . Hx 2 c sections. Hx irreg ular periods. EXAM PERFORMED: Transabdominal and transvaginal EXAM MEASUREMENTS: GESTATIONAL AGE / DATING LMP unsure, 09/27/2023, dates according to LMP: 07/03/2024. 4 weeks, 1 day. Uterus: 9.3 x 5.3 x 4.2 cm. Anechoic area seen in cervix: 0.8 cm, suspected cervical nabothian cyst Endometrium: 0.73 cm. No IUP seen at this time. Right ovary: 3.0 x 2.4 x 1.9 cm. Left ovary: 4.4 x 2.5 x 2.0 cm. Normal follicular change. CDS: appears wnl. Adnexas: Hypoechoic, solid area with vascularity seen adjacent to the right ovary within the right adnexa measurin.3 x 2.2 x 1.5 cm. Area is superior and slightly medial to the right ovary. Left adnexa appears wnl. Beta HcG (if available): Not available at this time IMPRESSION: Correlate with beta-hCG values to determine if there is potential for visualization of an intrauterin e at this time. No intrauterine is identified. A right adnexal ectopic may be present given the round solid area adjacent to the right ovary measuring 3.3 cm. Again, correl ate with beta-hCG values.
== END | disposition home or self-care (01) ==
LOC: RADUSWWP 13:54
PROVIDERS: ATTEND Family Medicine
DX: O20.0 Threatened abortion (principal); N93.0 Postcoital and contact bleeding; N92.6 Irregular menstruation, unspecified
CPT/HCPCS: 76801; 76817

== ENCOUNTER → 2023-11-05 | Outpatient (CLI) | payer BC ==
[2023-11-06 01:16] LABS: HCT 44.2 % (37.2-46.3); MCH 29.4 pg (27.0-32.0); MCHC 31.7 g/dL (32.0-37.0); MCV 92.7 FL (80.0-97.0); NRBC Per 100 WBC 0 X 10*3/uL (0.00-0.01); Platelet Count 328 X 10*3/uL (140-440); RBC 4.77 X 10*6/uL (4.10-5.20); RDW 13.3 % (11.5-14.5); WBC 9.78 X 10*3/uL (4.50-10.00)
[2023-11-06 01:52] LABS: ALT 18 U/L (8-44); Blood Urea Nitrogen 7.1 mg/dL (9.0-27.0)
[2023-11-06 01:53] LABS: AST 20 U/L (13-35)
== END ==
LOC: LABWHC1 13:32
PROVIDERS: ATTEND Obstetrics & Gynecology Obstetrics
DX: O00.109 Unspecified tubal pregnancy without intrauterine pregnancy (principal)
CPT/HCPCS: 36415; 82565; 84450; 84460; 84520; 84702; 85027; 86850; 86900; 86901

== ENCOUNTER → 2023-11-05 | Outpatient (CLI) | payer BC ==
[2023-11-05 14:04] VITALS: BP 136/82; PULSE 67; RESP 16; TEMP 97.9
[2023-11-05] MEDS: METHOTREXATE SODIUM (PF) 25 MG/ML 2 ML VIAL IM NR (14:35)
== END ==
LOC: PROCWHC3 13:49
PROVIDERS: ATTEND Obstetrics & Gynecology Obstetrics
DX: O00.90 Unspecified ectopic pregnancy without intrauterine pregnancy (principal)
CPT/HCPCS: 96402

== ENCOUNTER → 2023-11-08 | Outpatient (CLI) | payer BC | END | disposition home or self-care (01) | LOC: LABMAIN 07:50 | PROVIDERS: ATTEND Obstetrics & Gynecology Obstetrics | DX: O00.109 Unspecified tubal pregnancy without intrauterine pregnancy (principal) | CPT/HCPCS: 84702 ==

== ENCOUNTER → 2023-11-11 | Outpatient (CLI) | payer BC ==
[2023-11-11 15:34] LABS: HCT 41.8 % (37.2-46.3); HGB 13.9 g/dL (12.0-15.0); MCHC 33.3 g/dL (32.0-37.0); MCV 90.1 FL (80.0-97.0); Mean Platelet Volume 11.1 FL (9.5-12.2); NRBC Per 100 WBC 0 X 10*3/uL (0.00-0.01); Platelet Count 323 X 10*3/uL (140-440); RBC 4.64 X 10*6/uL (4.10-5.20); WBC 7.43 X 10*3/uL (4.50-10.00)
[2023-11-11 15:46] LABS: ALT 25 U/L (8-44); AST 21 U/L (13-35); Blood Urea Nitrogen 11.2 mg/dL (9.0-27.0)
[2023-11-11 18:02] LABS: HCG,Quantitative Serum 91.3 mIU/mL (0.0-6.0)
== END | disposition home or self-care (01) ==
LOC: LABWHC1 12:31
PROVIDERS: ATTEND Obstetrics & Gynecology Obstetrics
DX: O00.90 Unspecified ectopic pregnancy without intrauterine pregnancy (principal)
CPT/HCPCS: 36415; 82565; 84450; 84460; 84520; 84702; 85027